=== PATIENT | female | born 1965 | race Caucasian/White ===

== ENCOUNTER 2024-01-15 16:30 | Emergency (ER) | payer BC, SELFPAY ==
[2024-01-15 16:37] VITALS: BP 148/78; PULSE 76; RESP 16; TEMP 37; O2SAT 99
--- NOTE | 2024-01-15 17:01 | ED.DENTAL ---
HPI - Dental/Oral General Chief complaint: Dental/Oral <Janice Velazquez PA-C - Last Filed: 01/15/24 17:42> Stated complaint: right facial swelling <Janice Velazquez PA-C - Last Filed: 01/15/24 17:42> Time Seen by Provider: 01/15/24 16:45 <Janice Velazquez PA-C - Last Filed: 01/15/24 17:42> History of Present Illness HPI Narrative: 58-year-old female with history of asplenia presents to the emergency department for right facial pain and swelling x3 days. Patient states at the onset of symptoms she went to urgent care and was prescribed ibuprofen, doxycycline and given a steroid shot. She reports it is not improved and is in fact worsened which prompted her to come to the ER today. She denies difficulty swallowing her secretions, trismus, fever, nausea or vomiting, dental pain. Denies history of the same. She has not have a dentist. <Janice Velazquez PA-C - Last Filed: 01/15/24 17:42> Related Data Allergies/adverse reactions: Allergies Allergy/AdvReac Type Severity Reaction Status Date / Time Penicillins Allergy Unknown Unknown Verified 01/15/24 17:09 <Janice Velazquez PA-C - Last Filed: 01/15/24 17:42> Review of Systems Review of Systems: CONSTITUTIONAL: Denies fever, chills, or sweats. EYES: Denies visual changes, redness, or discharge. ENT: See HPI CARDIOVASCULAR: Denies chest pain, palpitations, or edema. RESPIRATORY: Denies cough or dyspnea. GASTROINTESTINAL: Denies abdominal pain, nausea, vomiting, or diarrhea. GENITOURINARY: Denies dysuria or hematuria. SKIN: Denies rash or itching. MUSCULOSKELETAL: Denies back pain, joint pain, or myalgia. NEUROLOGIC: Denies headache, numbness, or weakness. PSYCHIATRIC: Denies anxiety or depression. <JOEY Kowalski Last Filed: 01/15/24 17:42> Exam Narrative: GENERAL: Well-appearing, well-nourished, and in no acute distress. HEAD: Normocephalic, atraumatic. EYES: PERRLA and EOMI. No surrounding erythema to orbits. No pain with EOMs ENT: Nares clear, no rhinorrhea or epistaxis. Mucous membranes moist. Dental caries throughout. No evidence of periapical abscess. Floor mouth is soft without crepitus. No trismus. Patient tolerating secretions. Edema to the right side of the face with areas of induration. No active drainage. NECK: Supple. CHEST: Clear to auscultation. No respiratory distress. HEART: Regular rate and rhythm. No murmur heard. Normal peripheral pulses. EXTREMITIES: Normal range of motion. No edema. SKIN: Warm, dry, no rash. NEURO: No focal deficits. Alert and oriented x3 <Janice Velazquez PA-C - Last Filed: 01/15/24 17:42> Course SOFTWARE SYSTEMS ARCHITECT/PA Physician Supervision I agree with midlevel documentation; I performed the medical decision making component of this evaluation. <Makayla Licona MD - Last Filed: 01/15/24 19:44> Vital Signs Vital signs: Vital Signs Temperature 98.6 F 01/15/24 16:37 Pulse Rate 76 01/15/24 16:37 Respiratory Rate 16 01/15/24 16:37 Blood Pressure 148/78 H 01/15/24 16:37 Pulse Oximetry 99 01/15/24 16:37 Temperature 98.6 F 01/15/24 16:37 Pulse Rate 76 01/15/24 16:37 Respiratory Rate 16 01/15/24 16:37 Blood Pressure 148/78 H 01/15/24 16:37 Pulse Oximetry 99 01/15/24 16:37 <Janice Velazquez PA-C - Last Filed: 01/15/24 17:42> Vital Signs Temperature 98.6 F 01/15/24 16:37 Pulse Rate 76 01/15/24 16:37 Respiratory Rate 16 01/15/24 16:37 Blood Pressure 148/78 H 01/15/24 16:37 Pulse Oximetry 99 01/15/24 16:37 Temperature 98.6 F 01/15/24 16:37 Pulse Rate 76 01/15/24 16:37 Respiratory Rate 16 01/15/24 16:37 Blood Pressure 148/78 H 01/15/24 16:37 Pulse Oximetry 99 01/15/24 16:37 <Makayla Licona MD - Last Filed: 01/15/24 19:44> MDM - Dental/Oral MDM Narrative Medical decision making narrative: 50-year-old female presents to emergency department for right facial edema and pain x3 days. Se
[2024-01-15] MEDS: CLINDAMYCIN HCL 150 MG CAP 300 MG PO (17:09)
== END 2024-01-15 17:32 | disposition home or self-care (01) ==
PROVIDERS: Emergency Provider Physician Assistant; Referring Provider Emergency Medicine
DX: K02.9 Dental caries, unspecified (principal); L03.211 Cellulitis of face
CPT/HCPCS: 99283; A9270